=== PATIENT | male | born 1980 | race Hispanic/Latino ===

== ENCOUNTER 2019-11-24 10:10 | Emergency (ER) | payer OTHER, SELFPAY ==
[2019-11-24] MEDS ORDERED: Ketorolac Tromethamine 30 MG/ML VIAL ONE (10:41)
[2019-11-24] MEDS ORDERED: Acetaminophen 325 MG TAB ONE (10:41)
[2019-11-24 10:51] LABS: #Eosinphils 0.1 thou/uL (0.0-0.7); #Lymphocytes 2.8 thou/uL (1.20-3.40); #Monocytes 0.7 thou/uL (0.11-0.59); #Neutrophils 8.6 thou/uL (1.40-6.50); %Basophils 0.3 % (0.0-1.0); %Eosinophils 0.6 % (0.0-10.0); %Lymphocytes 22.5 % (21.0-51.0); %Neutrophils 70.6 % (42.0-75.0); Hemoglobin 14.5 g/dL (14.0-18.0); Mean Corpuscular HGB CONC 36.3 g/dL (32.0-36.0); Mean Corpuscular Hemoglobin 31.9 pg (27.0-31.0); Mean Corpuscular Volume 87.8 fL (78.0-98.0); Platelet Count 258 thou/uL (130-400); RBC Distribution Width 11.5 % (11.5-14.5); Red Blood Cell (RBC) Count 4.56 mill/uL (4.70-6.10); White Blood Cell (WBC) Count 12.2 thou/uL (4.8-10.8)
[2019-11-24 11:17] LABS: ALT (SGPT) 10 U/L (8-55); AST (SGOT) 10 U/L (5-34); Albumin 4.1 g/dL (3.5-5.0); Alkaline Phosphatase 64 U/L (40-110); Anion Gap 12 mmol/L (10-20); BUN (Urea Nitrogen) 8 mg/dL (8.9-20.6); Bilirubin, Total 0.8 mg/dL (0.2-1.2); Calc. Creatinine Clearance 0 mL/min (70-130); Calcium 8.6 mg/dL (7.8-10.44); Carbon Dioxide 26 mmol/L (22-29); Chloride 100 mmol/L (98-107); Estimated GFR-MDRD Greater than 90; Globulin 3.4 g/dL (2.4-3.5); Glucose 209 mg/dL (70-105); Potassium 3.9 mmol/L (3.5-5.1); Protein, Total 7.5 g/dL (6.0-8.3); Sodium 134 mmol/L (136-145)
[2019-11-24 12:30] LABS: Bilirubin Negative (Negative); Blood, Urine Negative (Negative); Clarity Clear (Clear); Glucose, Urine (Dipstick) Normal (Negative); Ketone, Urine Negative (Negative); Leukocyte Negative Leu/uL (Negative); Nitrite Negative (Negative); Protein, Urine (Dipstick) Negative (Neg-Trace); Specific Gravity, Urine 1.005 (1.002-1.036); Urobilinogen Normal mg/dL (Less than 2)
--- NOTE | 2019-11-24 13:28 | CT ---
CT LUMBAR SPINE: DATE: 11/24/2019. PROVIDED CLINICAL HISTORY: Back pain status post surgery. FINDINGS: Five [id number] lumbar-type vertebral bodies are present. Lumbar alignment appears normal. Dimitrios tebral body heights are preserved. No evidence for fracture or other acute osseous abnormality. Int ervertebral disk space heights are maintained. Nonspecific fluid density within the subcutaneous eva pose layer at the dorsal aspect of the paraspinal musculature, predominating at the region dorsal to L4 and L5. There is bilateral foraminal narrowing, left greater than right, at L4-5. There is bilat eral foraminal narrowing at L5-S1, greater on the left. There is no abnormality of the anterior para vertebral soft tissues evident. IMPRESSION: Nonspecific soft tissue changes involving the dorsum of the lower lumbar spine as described above. POS: ALEJANDRA
--- NOTE | 2019-11-24 14:17 | RAD ---
PORTABLE CHEST: Date: 11-24-2019 PROVIDED CLINICAL HISTORY: Fever. FINDINGS: Cardiac and mediastinal silhouette is within normal limits. No focal consolidation, pleural fluid, or pneumothorax apparent. IMPRESSION: No evidence for an acute cardiopulmonary process. POS: ALEJANDRA
[2019-11-25 11:02] LABS: SARS-CoV-2 MS2 Positive; SARS-CoV-2 N Gene Negative; SARS-CoV-2 S Gene Negative; SARS-CoV-2 by NAA Not Detected (NotDetected); SARS-CoV-2 orf1ab Negative
== END 2019-11-24 13:51 | disposition home or self-care (01) ==
LOC: ERS 10:10
DX: R50.82 Postprocedural fever (principal); M54.5 Low back pain; Z20.828 Contact with and (suspected) exposure to other viral communicable diseases
CPT/HCPCS: 71045; 72131; 80053; 81003; 83605; 85025; 87040; 87086; 87635; 93005; 96365; 96366; 96375; J1885; J3370; J7030; U0003

== ENCOUNTER 2019-12-16 09:45 | Emergency (ER) | payer SELFPAY ==
[2019-12-16] MEDS ORDERED: Metoclopramide HCl 10 MG/2 ML VIAL ONE (11:51)
[2019-12-16] MEDS ORDERED: Dexamethasone 10 MG/ML VIAL ONE (11:51)
[2019-12-16] MEDS ORDERED: diphenhydrAMINE 50 MG/ML VIAL ONE (11:54)
== END 2019-12-16 13:11 | disposition home or self-care (01) ==
LOC: ERS 09:45
DX: R51.9 Headache, unspecified (principal); E11.9 Type 2 diabetes mellitus without complications; F32.9 Major depressive disorder, single episode, unspecified; Z79.84 Long term (current) use of oral hypoglycemic drugs
CPT/HCPCS: 96365; 96375; J1100; J1200; J2765